=== PATIENT | male | born 1970 | race Caucasian/White ===

== ENCOUNTER → 2021-02-11 | Outpatient (CLI) | payer BC, OTHER ==
[~2021-02-11] MED LIST: ASPIRIN EC81 MG PO; ATORVASTATIN CA20 MG PO; ATORVASTATIN CA40 MG PO; CARVEDILOL3.125 MG PO; IMDUR ER TAB 3030 MG PO; LISINOPRIL5 MG PO; NAPROSYN500 MG PO; NITROGLYCERIN0.4 MG SL; REXULTI PO; TENORMIN 50 MG50 MG PO; TRAZODONE HCL150 MG PO; VENLAFAXINE HCL50 MG PO; XYZAL5 MG PO
== END ==
LOC: HEART 5 09:19
DX: R07.89 Other chest pain (principal); R53.83 Other fatigue; I51.9 Heart disease, unspecified; I34.0 Nonrheumatic mitral (valve) insufficiency
CPT/HCPCS: 93306